=== PATIENT | male | born 1985 | race Caucasian/White ===

== ENCOUNTER → 2022-05-24 | Emergency (ER) | payer OTHER ==
[~2022-05-24] VITALS: Ht 185.4 cm; Wt 104.3 kg
== END | disposition home or self-care (01) ==
LOC: ER 12:26
DX: S61.412A Laceration without foreign body of left hand, initial encounter (principal); W26.0XXA Contact with knife, initial encounter; Y93.9 Activity, unspecified; Y92.69 Other specified industrial and construction area as the place of occurrence of the external cause